=== PATIENT | female | born 1965 | race Caucasian/White ===

== ENCOUNTER 2016-11-11 07:14 | Day surgery (SDC) | payer OTHER ==
[2016-11-11] MEDS ORDERED: LIDOCAINE HCL/PF 1% SDV 5ML VIAL ONE (07:58)
[2016-11-11] MEDS ORDERED: PROPOFOL 20 ML ONE ×2 (07:58)
[2016-11-11] MEDS ORDERED: SUCCINYLCHOLINE CHLORIDE 200 MG/10 ML VIAL ONE (07:58)
[2016-11-11 08:03] VITALS: BMI 43.0
[2016-11-11 08:42] VITALS: TEMP 97.3
[2016-11-11 13:41] VITALS: BP 114/65; PULSE 68
--- NOTE | 2016-11-14 12:52 | PATH ---
Surgical Pathology Report Patient Name: GANGA DUNCAN [facility]. Rec. #: [id number] /Age/Gender: 1965 (Age: 51) / F Account: [id number] Location: ASU-ENDOSCOPY Taken: 11/11/2016 Received: 11/11/2016 Reported: 11/14/2016 Physicians: Miah Krueger M.D. Specimen(s) Received BX DUODENUM Clinical History Inflammatory disease of liver Portal gastropathy, rule out atrophy of the duodenum, reflux changes in the GE junction Final Diagnosis DUODENUM, BIOPSY: DUODENAL MUCOSA WITH FOCAL ACTIVE AND CHRONIC INFLAMMATION AND MYRON'S GLANDS HYPERPLASIA; FOCAL MILD NONSPECIFIC VILLUS BLUNTING; NO SIGNIFICANT INCREASE IN INTRAEPITHELIAL LYMPHOCYTES (SEE COMMENT). Comment: The finding of focal mild villous blunting is nonspecific and may be seen in gluten sensitive enteropathy (celiac disease) or chronic duodenitis. In the presence of significant inflammation this finding is likely related to duodenitis. Serological correlations are suggested, if clinically indicated. Electronically Signed Alec Granda M.D. Gross Description Received in formalin, labeled "biopsy duodenum" is a cerda, irregular portion of soft tissue measuring 0.5 cm in greatest dimension. The specimen is submitted in toto in one cassette. 11/11/201611/11/2016
== END 2016-11-11 09:45 | disposition home or self-care (01) ==
LOC: JASU-ENDO 07:14
PROVIDERS: ATTEND Internal Medicine Gastroenterology
PROC: 0DB98ZX Excision of Duodenum, Via Natural or Artificial Opening Endoscopic, Diagnostic (ICD-10-PCS; principal; 2016-11-11 08:00)
DX: K76.6 Portal hypertension (principal); K21.9 Gastro-esophageal reflux disease without esophagitis
CPT/HCPCS: 84703; 88305-TC

== ENCOUNTER 2020-04-11 01:07 | Emergency (ER) | payer OTHER ==
[2020-04-11 01:20] VITALS: BP 138/84; PULSE 63; TEMP 97.4; BMI 40.2
--- NOTE | 2020-04-11 01:50 | PDOC ---
History of Present Illness - General Chief Complaint: Pain Stated Complaint: PAIN Time Seen by Provider: 04/11/20 01:50 - History of Present Illness Initial Comments: 04/11/20 02:18 Pt with PMH of DM, HTN, cirrhosis, presents to the ED complaining of a one week history of pain underneath her right breast. Patient had a mechanical fall one week ago, and hit her right chest wall. Since then, she has pleuritic R chest wall pain that is worse with coughing, sneezing or movement of her torso. Denies fever or cough. Denies nausea or vomiting. Seen in her orthopedist's office on Monday, had a CXR that she reports was negative. Denies severe shortness of breath. States that she did not try any pain medication at home because she was told by GI that she could not have medications secondary to cirrhosis. 04/11/20 02:23 Past History - Medical History Allergies/Adverse Reactions: Allergies Allergy/AdvReac Type Severity Reaction Status Date / Time No Known Allergies Allergy Verified 04/11/20 01:19 Home Medications: Ambulatory Orders Furosemide [Lasix -] 20 mg PO DAILY 11/09/15 Nadolol 40 mg PO DAILY 11/09/15 Spironolactone [Aldactone] 50 mg PO DAILY 11/09/15 Anemia: Yes Asthma: No Cancer: No Cardiac Disorders: Yes CVA: No COPD: No CHF: No Dementia: No Diabetes: Yes GI Disorders: Yes (ESOPHAGITIS,GERD,HEMORRHAGE OF RECTUM AND ANUS) Disorders: No HTN: No Hypercholesterolemia: No Liver Disease: Yes (CIRRHOSIS OF LIVER,VIRAL HEPATITIS C) Seizures: No Thyroid Disease: No - Surgical History Abdominal Surgery: No Appendectomy: No Cardiac Surgery: No Cholecystectomy: No Lung Surgery: No Neurologic Surgery: No Orthopedic Surgery: No - Psycho-Social/Smoking History Smoking History: Never smoked Have you smoked in the past 12 months: No - Substance Abuse Hx (Audit-C & DAST Scrn) How often the patient has a drink containing alcohol: Never Score: In Men: 4 or > Positive; In Women: 3 or > Positive: 0 Screen Result (Pos requires Nsg. Audit-10AR): Negative Review of Systems - Review of Systems Able to Perform ROS?: Yes Is the patient limited Kazakh proficient: No Constitutional: No: Symptoms Reported, See HPI, Chills, Diaphoresis, Fever, Loss of Appetite, Malaise, Night Sweats, Weakness, Weight Stable, Unintentional Wgt. Loss, Unexplained wgt Loss, Other HEENTM: No: Symptoms Reported, See HPI, Eye Pain, Blurred Vision, Tearing, Recent change in vision, Double Vision, Cataracts, Ear Pain, Ocular Prothesis, E ar Discharge, Nose Pain, Nose Congestion, Tinnitus, Nose Bleeding, Hearing Loss, Throat Pain, Throat Swelling, Mouth Pain, Dental Problems, Difficulty Swallowing, Mouth Swelling, Other Respiratory: No: Symptoms reported, See HPI, Cough, Orthopnea, Shortness of Breath, SOB with Exertion, SOB at Rest, Stridor, Wheezing, Productive cough, Hemoptysis, Other Cardiac (ROS): Yes: Chest Pain ABD/GI: No: Symptoms Reported, See HPI, Abdominal Distended, Abd. Pain w/ defecation, Blood Streaked Bowels, Constipated, Diarrhea, Difficulty Swallowing, Nausea, Poor Appetite, Poor Fluid Intake, Rectal Bleeding, Vomiting, Indigestion, Abdominal cramping, Tarry Stools, Other : No: Symptoms Reported, See HPI, Burning, Dysuria, Discharge, Frequency, Flank Pain, Hematuria, Incontinence, Pain, Urgency, Testicular Mass, Testicular Swelling, Lesions, Testicular Pain, Other Musculoskeletal: No: Symptoms Reported, See HPI, Back Pain, Gout, Joint Pain, Joint Swelling, Muscle Pain, Muscle Weakness, Neck Pain, Joint Stiffness, Other *Physical Exam - Vital Signs Last Vital Signs Temp Pulse Resp BP Pulse Ox 97.4 F L 63 18 138/84 97 04/11/20 01:16 04/11/20 01:16 04/11/20 01:16 04/11/20 01:16 04/11/20 01:16 - Physical Exam 04/11/20 02:24 gen: alert, NAD CV: rrr no m/r/g Pulm: CTA b/l + point tenderness in R chest wall no ecchymosis Abdomen: soft, non tender, non distended Ext: no edema Medical Decision Making - Medical Decision Making 04/11/20 02:26 Pt presents to the ED complaining of chest wall pain after fall. Differential includes rib fracture, ptx, less likely PNA. Will check CXR, treat pain with lidocaine patch and reassess. Discharge - Discharge Information Problems reviewed: Yes Clinical Impression/Diagnosis: Contusion, chest wall Qualifiers: Encounter type: initial encounter Laterality: right Qualified Code(s): S20.211A - Contusion of right front wall of thorax, initial encounter Condition: Good Disposition: HOME - Admission No - Follow up/Referral Referrals: Neno León MD [Primary Care Provider] - - Patient Discharge Instructions Patient Printed Discharge Instructions: DI for Atypical Chest Pain Additional Instructions: you came to the ED for pain in your chest. We did an EKG, a chest xray and a cat scan of the chest that showed no acute findings. This pain is most likely caused by a bruise or a pulled muscle in your chest. This is not dangerous, but can be extremely painful. you can use the lidocaine patches that I prescribed to help with the pain. REturn to the ED for new or worsening symptoms, especially shortness of breath, fever, worsening pain. make sure that you call your primary care doctor for follow up. - Post Discharge Activity
[2020-04-11] MEDS ORDERED: LIDOCAINE 5% TOPICAL PATCH TP ONE (02:12)
[2020-04-11] MEDS ORDERED: LIDOCAINE 5% TOPICAL PATCH ONE (02:16)
[2020-04-11] MEDS ORDERED: oxyCODONE HCL 5 MG TABLET PO ONE (03:39)
[2020-04-11] MEDS ORDERED: oxyCODONE HCL 5 MG TABLET ONE (03:46)
[2020-04-11] MEDS ORDERED: LIDOCAINE PATCH REMOVAL MC SCH (22:00)
--- NOTE | 2020-04-12 17:31 | EKG ---
Test Reason : Blood Pressure : / mmHG Vent. Rate : 065 BPM Atrial Rate : 065 BPM P-R Int : 164 ms QRS Dur : 078 ms QT Int : 434 ms P-R-T Axes : -01 -16 010 degrees QTc Int : 451 ms POOR DATA QUALITY, INTERPRETATION MAY BE ADVERSELY AFFECTED NORMAL SINUS RHYTHM VOLTAGE CRITERIA FOR LEFT VENTRICULAR HYPERTROPHY ABNORMAL ECG WHEN COMPARED WITH ECG OF 06-AUG-2016 17:54, QT HAS LENGTHENED Confirmed by MD Dorys, Santosh ([id number]) on 04/12/2020 5:31:25 PM Referred By: Confirmed By:Santosh Saul MD
== END 2020-04-11 05:33 | disposition home or self-care (01) ==
LOC: JER 01:07
DX: S20.211A Contusion of right front wall of thorax, initial encounter (principal); W19.XXXA Unspecified fall, initial encounter
CPT/HCPCS: 71046-TC-FY; 71250-TC; 93005; 93010; 99285-25

== ENCOUNTER 2020-08-19 06:04 | Day surgery (SDC) | payer OTHER ==
[2020-08-17 17:59] VITALS: BMI 38.9
[2020-08-19] MEDS ORDERED: MIDAZOLAM HCL 2 MG/2 ML SINGLE DOSE VIAL ONE ×3 (07:28→07:32)
[2020-08-19] MEDS ORDERED: DEXAMETHASONE SOD PHOSPHATE/PF 10 MG/ML SDV ONE (07:30)
[2020-08-19] MEDS ORDERED: ROPIVACAINE HCL 0.5% 30ML VIAL ONE (07:30)
[2020-08-19] MEDS ORDERED: PROPOFOL 20 ML ONE (07:32)
[2020-08-19] MEDS ORDERED: ROCURONIUM BROMIDE 100 MG/10 ML VIAL ONE (07:32)
[2020-08-19] MEDS ORDERED: SEVOFLURANE 250 ML BTL ONE (07:37)
[2020-08-19] MEDS ORDERED: ceFAZolin SODIUM 1 GM VIAL ONE (08:40)
[2020-08-19] MEDS ORDERED: KETOROLAC TROMETHAMINE 30 MG/1 ML VIAL ONE (08:40)
[2020-08-19] MEDS ORDERED: ONDANSETRON 4 MG/2 ML VIAL ONE (08:40)
[2020-08-19] MEDS ORDERED: BENZOIN/ALOE VERA/STORAX/TOLU 58 ML BOTTLE ONE (09:51)
[2020-08-19] MEDS ORDERED: ONDANSETRON 4 MG/2 ML VIAL IVPUSH PRN (10:17)
[2020-08-19] MEDS ORDERED: oxyCODONE HCL 5 MG TABLET PO PRN (10:17)
[2020-08-19] MEDS ORDERED: LACTATED RINGERS SOLUTION 1,000 ML IV SCH (10:30)
[2020-08-19 10:49] VITALS: TEMP 97.1
[2020-08-19 14:03] VITALS: BP 108/65; PULSE 61
== END 2020-08-19 12:30 | disposition home or self-care (01) ==
LOC: JASU-SURG 06:04
PROVIDERS: ATTEND Orthopaedic Surgery
PROC: 0RNJ4ZZ Release Right Shoulder Joint, Percutaneous Endoscopic Approach (ICD-10-PCS; 2020-08-19)
PROC: 0LQ14ZZ Repair Right Shoulder Tendon, Percutaneous Endoscopic Approach (ICD-10-PCS; principal; 2020-08-19 08:00)
PROC: 0LU14JZ Supplement Right Shoulder Tendon with Synthetic Substitute, Percutaneous Endoscopic Approach (ICD-10-PCS; 2020-08-19 08:00)
DX: M75.41 Impingement syndrome of right shoulder (principal); M75.101 Unspecified rotator cuff tear or rupture of right shoulder, not specified as traumatic; E11.9 Type 2 diabetes mellitus without complications
CPT/HCPCS: 88304-TC; 94760

== ENCOUNTER → 2022-05-06 | Day surgery (SDC) | payer OTHER | END | disposition home or self-care (01) | LOC: FMAMMOTONE 09:39 | PROVIDERS: ATTEND Specialist | PROC: 0H9T3ZX Drainage of Right Breast, Percutaneous Approach, Diagnostic (ICD-10-PCS; principal; 2022-05-06) | DX: N60.11 Diffuse cystic mastopathy of right breast (principal); N60.21 Fibroadenosis of right breast; N60.31 Fibrosclerosis of right breast; N64.89 Other specified disorders of breast; R92.1 Mammographic calcification found on diagnostic imaging of breast | CPT/HCPCS: 19081; 76098-TC-FY; 87899; 88305-TC; A4648 ==

== ENCOUNTER 2023-10-28 12:11 | Emergency (ER) | payer OTHER ==
[2023-10-28 12:19] VITALS: BP 145/61; PULSE 72; RESP 18; TEMP 97.8; BMI 36.3
[2023-10-28] MEDS ORDERED: DIPHTH,PERTUSS(ACELL),TET 0.5 ML DISP.SYRIN IM ONE (13:17)
[2023-10-28] MEDS: DIPHTH,PERTUSS(ACELL),TET 0.5 ML DISP.SYRIN IM ONE (13:31)
== END 2023-10-28 15:16 | disposition home or self-care (01) ==
LOC: JER 12:11
DX: S00.83XA Contusion of other part of head, initial encounter (principal); S80.212A Abrasion, left knee, initial encounter; W01.0XXA Fall on same level from slipping, tripping and stumbling without subsequent striking against object, initial encounter; X50.1XXA Overexertion from prolonged static or awkward postures, initial encounter
CPT/HCPCS: 70450-TC; 73562-TC-LT-FY; 73610-TC-RT-FY; 73630-TC-RT-FY; 99284-25